=== PATIENT | male | born 1990 | race African-American/Black ===

== ENCOUNTER 2019-08-02 12:31 | Emergency (ER) | payer OTHER ==
[~2019-08-02] VITALS: Ht 185.4 cm; Wt 62.1 kg
[2019-08-02] MEDS ORDERED: KETOROLAC TROMETHAMINE 30 MG INJ IM ONE (13:00)
[2019-08-02] MEDS ORDERED: IPRATROPIUM BROMIDE 0.5 MG/2.5 ML NEBU NEB ONE (13:00)
[2019-08-02] MEDS ORDERED: ALBUTEROL SULFATE 2.5 MG/3 ML NEBU NEB ONE (13:00)
[2019-08-02] MEDS ORDERED: IPRATROPIUM BROMIDE 0.5 MG/2.5 ML NEBU ONE (13:03)
[2019-08-02] MEDS ORDERED: ALBUTEROL SULFATE 2.5 MG/3 ML NEBU ONE (13:03)
[2019-08-02] MEDS ORDERED: KETOROLAC TROMETHAMINE 30 MG INJ ONE (13:14)
--- NOTE | 2019-08-02 13:18 | NUR ---
PT IS IN ROOM #2B. DR HERNANDEZ EVALUATED THE PT.
--- NOTE | 2019-08-02 13:59 | NUR ---
Patient discharged to home in stable conditon. Written and verbal after care instructions given. Patient verbalizes understanding of instructions.
== END 2019-08-02 14:01 | disposition home or self-care (01) ==
LOC: ER 12:31
DX: J22 Unspecified acute lower respiratory infection (principal); F17.200 Nicotine dependence, unspecified, uncomplicated; F12.10 Cannabis abuse, uncomplicated
CPT/HCPCS: 71045; 94644; 96372; 99285; J1885; A4663; J3590

== ENCOUNTER 2019-08-10 11:53 | Emergency (ER) | payer BC, OTHER ==
[~2019-08-10] VITALS: Ht 185.4 cm; Wt 62.1 kg
[2019-08-10] MEDS ORDERED: predniSONE 10 MG TABLET PO ONE (12:15)
--- NOTE | 2019-08-10 12:28 | NUR ---
Patient discharged to home in stable conditon. Written and verbal after care instructions given. Patient verbalizes understanding of instructions.PT WALKS I NSTEADY GAIT, NO SIGN F DISTRESS.
[2019-08-10] MEDS ORDERED: predniSONE 10 MG TABLET ONE (12:29)
[2019-08-10] MEDS ORDERED: predniSONE 50 MG TABLET ONE (12:29)
== END 2019-08-10 12:32 | disposition home or self-care (01) ==
LOC: ER 11:57
DX: J20.9 Acute bronchitis, unspecified (principal); F17.200 Nicotine dependence, unspecified, uncomplicated; F12.10 Cannabis abuse, uncomplicated
CPT/HCPCS: 99283; J7512 ×2; A4663

== ENCOUNTER 2019-09-12 11:59 | Emergency (ER) | payer OTHER, BC ==
[~2019-09-12] VITALS: Ht 185.4 cm; Wt 62.1 kg
[2019-09-12] MEDS ORDERED: CEFTRIAXONE 500 MG VIAL IM ONE (12:30)
[2019-09-12] MEDS ORDERED: LIDOCAINE HCL 1% 20 ML VIAL ONE (12:36)
[2019-09-12] MEDS ORDERED: CEFTRIAXONE 500 MG VIAL ONE (12:36)
--- NOTE | 2019-09-12 12:56 | NUR ---
Patient discharged to home in stable conditon. Written and verbal after care instructions given. Patient verbalizes understanding of instructions.pt walks in steady gait, no sign of allergic reaction.
== END 2019-09-12 12:58 | disposition home or self-care (01) ==
LOC: ER 11:59
DX: A56.8 Sexually transmitted chlamydial infection of other sites (principal)
CPT/HCPCS: 96372; 99283; J0696; J3490; A4663